=== PATIENT | male | born 1970 | race Caucasian/White ===

== ENCOUNTER 2022-12-15 18:22 | Emergency (ER) | payer OTHER ==
[~2022-12-15] VITALS: Ht 188 cm; Wt 86.2 kg
[2022-12-15 19:09] VITALS: BP 119/83
[2022-12-15] MEDS ORDERED: AMOCLA875 PO (20:23)
== END 2022-12-15 20:38 | disposition home or self-care (01) ==
LOC: ER 18:22
DX: K04.7 Periapical abscess without sinus (principal); Z79.2 Long term (current) use of antibiotics
CPT/HCPCS: A9270